=== PATIENT | male | born 1980 | race Caucasian/White ===

== ENCOUNTER 2017-10-22 18:57 | Emergency (ER) | payer BC, OTHER ==
[~2017-10-22] VITALS: Ht 170.2 cm; Wt 76.0 kg
[2017-10-22 19:10] VITALS: TEMP 36.7; Ht 170.2 cm; Wt 76.0 kg
[2017-10-22] MEDS ORDERED: LIDOCAINE 1% BUFFERED INJ 20 ML VIAL INFIL STA (19:23)
[2017-10-22] MEDS ORDERED: DIPHTHERIA/TETANUS/PERTUSSIS 0.5 ML SYR/VIAL IM. ONE (19:30)
--- NOTE | 2017-10-22 19:56 | EMERGENCY ROOM VISIT NOTE ---
ED Visit Note First contact with patient: 19:15 CHIEF COMPLAINT: Right hand laceration HISTORY OF PRESENT ILLNESS: This 37-year-old male patient presents to the emergency department, ambulatory, approximately 60 minutes after cutting the right hand while playing softball. The patient states he was struck with a softball between his second and third fingers causing a laceration into the webspace. The bleeding has stopped. Denies weakness or numbness of the hand or fingers. The patient rates the pain as burning and 0/10. The patient denies any other injuries. The patient is uncertain about his tetanus status. REVIEW OF SYSTEMS: A 6 system review of systems was completed with positives and pertinent negatives listed in the HPI. ALLERGIES: None MEDICATIONS: Xolair PMH: Chronic hives SOCIAL HISTORY: The patient lives locally with family. He denies drug use. He admits to smoking cigarettes, using snuff, and drinking alcohol. PHYSICAL EXAM: Vital Signs: Reviewed Nurse's notes, vital signs stable. GENERAL : This is a 37-year-old white male, in no acute distress, well-developed, well- nourished. SKIN: There is a 1.5 cm long laceration on the anterior aspect of the right hand, extending into the webspace between the second and third digit. The edges gape apart with traction. There is no foreign material in the wound and it looks clean. There is no active bleeding. No deep structures such as tendons, bones, or significant blood vessels are seen in the base of the wound. Normal strength and movement of the fingers and wrist. Capillary refill less than 2 seconds. Normal sensation to light and sharp touch. EMERGENCY DEPARTMENT COURSE: I examined the patient. Verbal consent was obtained to perform the procedure. Using sterile technique the wound was cleansed with Betadine. The area was sterilely draped. 2 ml of 1% buffered lidocaine was used to anesthetize the laceration on the hand. Once the patient was anesthetized, the wound was copiously irrigated under pressure with sterile saline. The wound was explored and was as described above. The laceration was repaired using 4 simple interrupted 4-0 nylon sutures with the wound edges being well approximated. The patient tolerated the procedure well. Hemostasis was achieved. The area was cleaned with sterile saline and dressed with bacitracin ointment and bandage. The patient was given Tdap immunization. Discharge instructions reviewed the patient was discharged home in good condition. I attest that I have personally reviewed the patient's current medication list. Patient was found to have normal blood pressure on screening and does not require follow-up. Differential diagnosis includes laceration, contusion, fracture, sprain/strain, tendon or ligament injury, neurovascular compromise, foreign body, assault, and others DIAGNOSIS: Right Hand laceration, need for tetanus vaccination The chart was completed utilizing [employer] Speech voice recognition software. Grammatical errors, random word insertions, pronoun errors, and incomplete sentences are an occasional consequence of this system due to software limitations, ambient noise, and hardware issues. Any formal questions or concerns about the content, text, or information contained within the body of this dictation should be directly addressed to the provider for clarification. Current/Historical Medications Miscellaneous Medications None (Patient States No Home Meds) Allergies Uncoded Allergies: NKDA (Allergy, Unknown, 04/28/05) Vital Signs Date Time Temp Pulse Resp B/P (MAP) Pulse Ox O2 Delivery O2 Flow Rate FiO2 10/22/17 19:10 36.7 76 20 126/80 98 Room Air Departure Information Impression Primary Impression: Laceration of right hand Additional Impression: Need for tetanus booster Dispostion Home / Self-Care Condition GOOD Referrals Maxim Vigil M.D. (PCP) Patient Instructions ED Laceration Hand, My [facility] Additional Instructions You have received 4 sutures on your right hand. These sutures are NOT dissolvable and WILL need to be removed by a health care provider in 12-14 days. You can return to the Emergency Department or contact your Primary Care Provider to have the sutures removed. Proper wound care is essential for adequate wound healing and infection prevention. You can shower and clean the wound with soap and water. Do not scour over the wound, pat dry with a towel. Do not submerse the wound (i.e. bathe or dish wash) until the sutures have been removed. You can use an antibiotic ointment with a dressing over the wound for the next 3-4 days. After this time you may leave the wound dry and open to the air. If crust develops over the wound you can use a Q-tip to apply a 1:1 peroxide:water solution to clean the wound. Look for signs of infection of the wound including: increased pain, swelling, foul discharge, streaking, or increased temperature. If any of these are noticed you should return to the Emergency Department for further assessment and treatment. As with any laceration you may have received nerve damage to the surrounding tissues. This damage may or may not be permanent. You should keep the area covered with sunscreen for the first 6 months to 1 year when at risk for exposure to help minimize scarring. For pain control, you can use the following kafb-vkt-[id number] medicines (if >12 yo): Ibuprofen(Motrin, Advil) may be used for fever or pain. Use 600mg every six hours as needed. Take with food. Avoid using more than 2400mg in a 24 hour period. Do not use 2400mg per day for more than three consecutive days without physician direction. Prolonged inappropriate use can lead to stomach upset or ulcers. (AND/OR) Acetaminophen(Tylenol) may be used for fever or pain. Use 1000mg every six hours as needed. Avoid using more than 3000mg in a 24 hour period. Return to the emergency department if your symptoms worsen despite treatment course outlined above. Problem Qualifiers Primary Impression: Laceration of right hand Encounter type: initial encounter Foreign body presence: without foreign body Qualified Codes: S61.411A - Laceration without foreign body of right hand , initial encounter
[2017-10-22 20:02] VITALS: BP 118/79; PULSE 76; O2SAT 98
== END 2017-10-22 20:06 | disposition home or self-care (01) ==
LOC: C.EDB 18:58 → C.EDD 20:06
DX: S61.411A Laceration without foreign body of right hand, initial encounter (principal); W21.07XA Struck by softball, initial encounter; Y93.64 Activity, baseball; Z23 Encounter for immunization; F17.210 Nicotine dependence, cigarettes, uncomplicated; Z79.899 Other long term (current) drug therapy